=== PATIENT | female | born 1995 | race Caucasian/White ===

== ENCOUNTER 2019-06-27 14:59 | Emergency (ER) | payer MEDICAID ==
[~2019-06-27] VITALS: Ht 170.2 cm; Wt 83.9 kg
[2019-06-27 15:06] VITALS: BP_SYST 134
--- NOTE | 2019-06-27 15:12 | NUR ---
Patient triaged and placed in waiting room. VSS and patient appears in no acute distress at this time. Accompanied by visitor, awaiting available bed, and MD notified of need for MSE.
[2019-06-27] MEDS ORDERED: NACL 0.9% 1,000 ML IV ONE (15:14)
--- NOTE | 2019-06-27 15:36 | NUR ---
Patient to ER bed 07 to gown for evaluation. Side rails up. Report given to Tenzin RONQUILLO.
--- NOTE | 2019-06-27 15:45 | NUR ---
ER Dr. Nava at bedside examining patient.
--- NOTE | 2019-06-27 15:46 | NUR ---
Pt complaining of mild lower abdominal pain and vaginal bleeding, denies n/v/d. Pt stated she is 9 weeks with twins, as is concerned she may be having a spontaneous . Pt is AAO x 4, speaks [place]ian, and is cooperative. She is accompanied by family.
[2019-06-27 15:49] LABS: BASOPHILS # (AUTO) 0.1 K/uL (0.0-0.2); BASOPHILS % (AUTO) 0.6 % (0.0-2.0); EOSINOPHILS # (AUTO) 0.1 K/uL (0.0-0.4); EOSINOPHILS % (AUTO) 0.9 % (0.0-4.0); HEMOGLOBIN 12.9 g/dL (12.0-16.0); MEAN CORPUSCULAR HEMOGLOBIN 31 pg (27-31); MEAN CORPUSCULAR HGB CONC 35 % (32-36); MEAN CORPUSCULAR VOLUME 89 fL (79.0-98.0); MONOCYTES # (AUTO) 0.7 K/uL (0.0-1.0); MONOCYTES % (AUTO) 7.8 % (1.7-9.3); NEUTROPHILS # (AUTO) 6.5 K/uL (1.8-7.7); NEUTROPHILS % (AUTO) 69.7 % (40.0-70.0); PLATELET COUNT (AUTO) 259 K/uL (130-430); RED BLOOD CELL COUNT(AUTO) 4.15 MIL/uL (4.2-6.2); RED CELL DISTRIBUTION WIDTH 12.4 % (9.0-15.0); WHITE BLOOD COUNT (AUTO) 9.3 K/uL (4.8-10.8)
[2019-06-27 16:08] LABS: CALCIUM 8.8 mg/dL (8.4-11.0); CREATININE 0.5 mg/dL (0.55-1.30); POTASSIUM 3.5 mmol/L (3.5-5.1)
[2019-06-27 16:31] LABS: BILIRUBIN,URINE NEGATIVE (NEGATIVE); BLOOD, URINE 2+ (NEGATIVE); CLARITY/URINE CLOUDY (CLEAR); COLOR,URINE YELLOW (YELLOW); GLUCOSE,URINE NEGATIVE (NEGATIVE); KETONES,URINE NEGATIVE (NEGATIVE); LEUKOCYTE ESTERASE ,URINE NEGATIVE (NEGATIVE); NITRITE, URINE NEGATIVE (NEGATIVE); PROTEIN URINE NEGATIVE (NEGATIVE)
[2019-06-27 16:35] LABS: ALBUMIN 3.4 g/dL (3.4-4.8); TOTAL BILIRUBIN 0.3 mg/dL (0.0-1.0)
[2019-06-27 16:57] LABS: BACTERIA,URINE FEW /HPF (None Seen); MUCUS,URINE None Seen /LPF (None Seen); URINE AMORPHOUS PHOSPHATES 4+ /HPF (None Seen); WBC,URINE 0-3 /HPF (0-3)
--- NOTE | 2019-06-27 17:25 | NUR ---
Patient given written and verbal discharge instructions and verbalizes understanding. ER MD discussed with patient the results and treatment provided. Patient in stable condition. ID arm band removed. IV catheter removed intact and dressing applied, no active bleeding. Patient educated on pain management and to follow up with PMD. Pain Scale 0/10. Opportunity for questions provided and answered.
[2019-06-27 17:34] VITALS: BP_SYST 134
== END 2019-06-27 17:25 | disposition home or self-care (01) ==
LOC: SED 14:59
DX: O20.9 Hemorrhage in early pregnancy, unspecified (principal); Z3A.09 9 weeks gestation of pregnancy
CPT/HCPCS: 36415; 76801; 76817; 80053; 81000-TC; 84702-TC; 85025; 86901; 99284